=== PATIENT | male | born 1990 | race Caucasian/White ===

== ENCOUNTER → 2016-09-19 | Outpatient (CLI) | payer BC ==
[~2016-09-19] MED LIST: NONE PER PT
== END ==
LOC: STAR 14:55
PROVIDERS: ATTEND Orthopaedic Surgery
DX: Z02.9 Encounter for administrative examinations, unspecified (principal)

== ENCOUNTER 2016-09-25 05:40 | Day surgery (SDC) | payer BC ==
[~2016-09-25] VITALS: Ht 180.3 cm; Wt 92.8 kg
[2016-09-25] MEDS ORDERED: LACTATED RINGERS 1,000 ML IV SCH (05:55)
[2016-09-25 05:56] VITALS: BP 100/62
[2016-09-25] MEDS ORDERED: LIDOCAINE 1%, 2ML SQ PRN (06:00)
[2016-09-25] MEDS ORDERED: ROPIvacaine/PF 0.5%, 30 ML ONE (06:13)
[2016-09-25] MEDS ORDERED: LIDOCAINE/PF 1%, 30ML ONE (06:14)
[2016-09-25] MEDS ORDERED: EPINEPHRINE 1 MG/ML, 1ML ONE (06:14)
[2016-09-25] MEDS ORDERED: FENTANYL PF 250 MCG/5ML ONE (06:47)
[2016-09-25] MEDS ORDERED: MIDAZOLAM 1 MG/ML, 2ML ONE (06:47)
[2016-09-25] MEDS ORDERED: DEXAMETHASONE 4 MG/ML, 1ML ONE (06:59)
[2016-09-25] MEDS ORDERED: KETOROLAC 30 MG/1 ML ONE ×2 (06:59→08:25)
[2016-09-25] MEDS ORDERED: CEFAZOLIN 1,000 MG ONE (06:59)
[2016-09-25] MEDS ORDERED: ONDANSETRON 2MG/ML, 2ML ONE (06:59)
[2016-09-25] MEDS ORDERED: PROPOFOL 10 MG/ML, 20ML ONE (06:59)
[2016-09-25] MEDS ORDERED: PROMETHAZINE 25 MG/ML, 1ML IV PRN (07:00)
[2016-09-25] MEDS ORDERED: MEPERIDINE/PF 25MG/0.5ML IVPush PRN (07:00)
[2016-09-25] MEDS ORDERED: HYDROmorphone 1 MG/ML, 1ML IV PRN (07:00)
[2016-09-25] MEDS ORDERED: OXYcodone 5 MG/5 ML ORAL.SOL UDC PO PRN (07:00)
[2016-09-25] MEDS ORDERED: MIDAZOLAM 1 MG/ML, 2ML IV PRN (07:00)
[2016-09-25] MEDS ORDERED: ALBUTEROL/IPRATROPIUM 2.5MG/0.5MG, 3 ML NPPB PRN (07:00)
[2016-09-25] MEDS ORDERED: LABETALOL 5MG/ML, 20ML IV PRN (07:00)
[2016-09-25] MEDS ORDERED: ACETAMINOPHEN 325 MG TABLET PO PRN (07:00)
[2016-09-25] MEDS ORDERED: LORazepam 2 MG/ML, 1ML IVPush PRN (07:00)
[2016-09-25] MEDS ORDERED: hydrALAzine 20 MG/ML, 1ML IV PRN (07:00)
[2016-09-25] MEDS ORDERED: ONDANSETRON 2MG/ML, 2ML IVPush PRN (07:00)
[2016-09-25] MEDS ORDERED: ACETAMINOPHEN 650 MG/20.3 ML UDC ONE (07:51)
[2016-09-25] MEDS ORDERED: FENTANYL PF 100 MCG/2ML ONE (07:51)
[2016-09-25] MEDS ORDERED: ACETAMINOPHEN 325 MG/10.15 ML UDC ONE (07:51)
[2016-09-25] MEDS ORDERED: OXYcodone 5 MG/5 ML ORAL.SOL UDC ONE (07:51)
[2016-09-25] MEDS: FENTANYL PF 100 MCG/2ML IV PRN ×2 (08:01→08:08)
== END 2016-09-25 09:30 ==
LOC: OUT 05:40
PROVIDERS: ATTEND Orthopaedic Surgery
DX: S83.281A Other tear of lateral meniscus, current injury, right knee, initial encounter (principal); M22.41 Chondromalacia patellae, right knee; X58.XXXA Exposure to other specified factors, initial encounter; Y93.89 Activity, other specified; Y92.89 Other specified places as the place of occurrence of the external cause; Y99.8 Other external cause status
CPT/HCPCS: 29881; J0171; J0690; J1100; J1885; J2250; J2405; J2704; J2795; J3010; J3490; J7120